=== PATIENT | male | born 1990 | race Caucasian/White ===

== ENCOUNTER 2023-10-16 01:46 | Emergency (ER) | payer OTHER ==
[~2023-10-16] VITALS: Ht 175.3 cm; Wt 82.7 kg
[2023-10-16] MEDS ORDERED: AMOX875T2 (01:53)
[2023-10-16] MEDS ORDERED: IBUP1TAB6 PO (01:53)
[2023-10-16 06:52] VITALS: BP 125/67; TEMP 98.5; O2SAT 99
== END 2023-10-16 06:56 | disposition home or self-care (01) ==
LOC: M ED 01:46
DX: L02.31 Cutaneous abscess of buttock (principal); E11.9 Type 2 diabetes mellitus without complications; Z79.2 Long term (current) use of antibiotics; Z79.1 Long term (current) use of non-steroidal anti-inflammatories (NSAID)